=== PATIENT | male | born 1980 | race Caucasian/White ===

== ENCOUNTER 2017-03-22 17:31 | Emergency (ER) | payer OTHER ==
[~2017-03-22] VITALS: Ht 160 cm; Wt 99.8 kg
[2017-03-22 17:37] VITALS: BP 152/90
--- NOTE | 2017-03-22 17:58 | PHYS DOC ---
Past Medical History Past Medical History: Anxiety, Hypertension, Other Additional Past Medical Histor: insomnia Past Surgical History: No Surgical History Additional Information: chew Alcohol Use: Rarely Drug Use: None Adult General Chief Complaint Chief Complaint: TOE PROBLEM HPI HPI Patient is a 36 year old male who presents with left great toe pain that began yesterday. He states he was stepping off a stepladder when he hyperextended his left great toe. Review of Systems Review of Systems Constitutional: Denies fever or chills [] Musculoskeletal: Left great toe pain Integument: Denies rash or skin lesions [] Neurologic: Denies headache, focal weakness or sensory changes [] Endocrine: Denies polyuria or polydipsia [] Allergies Allergies Allergies Coded Allergies Type Severity Reaction Last Updated Verified No Known Drug Allergies 03/22/17 No Physical Exam Physical Exam Constitutional: Well developed, well nourished, no acute distress, non-toxic appearance. [] Skin: Warm, dry, no erythema, no rash. [] Back: No tenderness, no CVA tenderness. [] Extremities: Left foot and great toe with no obvious deformity. Soft tissue swelling noted on the left great toe. Tenderness on palpation of the left great toe MTP joint. Full range of motion to the left foot and toes. +2 left pedal pulse. Cap refill less than 2 seconds left lower extremity. Sensation intact to the left lower extremity. Neurologic: Alert and oriented X 3, normal motor function, normal sensory function, no focal deficits noted. [] Psychologic: Affect normal, judgement normal, mood normal. [] Current Patient Data Vital Signs Vital Signs Date Time Temp Pulse Resp B/P (MAP) Pulse Ox O2 Delivery O2 Flow Rate FiO2 03/22/17 17:37 98.3 104 18 98 Room Air 98.3 EKG EKG [] Radiology/Procedures Radiology/Procedures [] Course & Med Decision Making Course & Med Decision Making Pertinent Labs and Imaging studies reviewed. (See chart for details) Patient is in the ED with left great toe pain after hyperextending it yesterday , left foot x-rays interpreted by Dr. Toney are negative for any acute findings. Patient will be discharged with instructions to ice and elevate the extremity. Follow-up with ortho in one week. Tylenol/Motrin for pain. Dragon Disclaimer Dragon Disclaimer This electronic medical record was generated, in whole or in part, using a voice recognition dictation system. Departure Departure Impression: Primary Impression: Sprain of left great toe Disposition: HOME, SELF-CARE Condition: STABLE Referrals: MONICA LUKE MD Follow-up in one week if pain continues Patient Instructions: Foot Sprain-Brief Additional Instructions: You were seen for sprain of the left great toe. Ice and elevate the extremity. Follow-up with the provided orthopedic doctor/your own doctor in 1-2 weeks. Take Tylenol/Motrin for pain. Problem Qualifiers Primary Impression: Sprain of left great toe Encounter type: initial encounter Qualified Codes: S93.502A - Unspecified sprain of left great toe, initial encounter JOLIE BRUMFIELD CIRCULATION CLERK Mar 22, 2017 17:58
--- NOTE | 2017-03-23 08:11 | RAD ---
Left foot 3 views. History: Injury at work, pain first digit and first metatarsal 3 views were taken of the left foot. There is no fracture or acute osseous abnormality. Impression: 1. No fracture noted in the right foot.
== END 2017-03-22 18:37 | disposition home or self-care (01) ==
LOC: ER 17:31
DX: S93.502A Unspecified sprain of left great toe, initial encounter (principal); I10 Essential (primary) hypertension; F41.9 Anxiety disorder, unspecified; G47.00 Insomnia, unspecified; F17.220 Nicotine dependence, chewing tobacco, uncomplicated; X58.XXXA Exposure to other specified factors, initial encounter; Y93.89 Activity, other specified; Y92.89 Other specified places as the place of occurrence of the external cause; Y99.8 Other external cause status
CPT/HCPCS: 73630; 99284